=== PATIENT | female | born 1960 | race Caucasian/White ===

== ENCOUNTER 2017-01-04 14:10 | Day surgery (SDC) | payer OTHER ==
[2017-01-04] VITALS (12 sets, daily range): BP systolic 102–119; BP diastolic 61–90; PULSE 72–94; RESP 13–22; Ht 165.1 cm; Wt 72.8 kg
[~2017-01-04] VITALS: Ht 165.1 cm; Wt 72.8 kg
[~2017-01-04 14:10] MED LIST: CEFAZOLIN 1 GM INJ ONE; ELVI1TAB PO; FAMO20TA18 PO; GLYCOPYRROLATE 1 MG INJ ONE; LEDI1TAB PO; METO-448 PO; NEOSTIGMINE 3 MG/3 ML SYRINGE ONE; OXYC-279 PO; ROCURONIUM 50 MG INJ ONE
[2017-01-04] MEDS ORDERED: PROPOFOL 20 ML ONE (15:59)
[2017-01-04] MEDS ORDERED: SUCCINYLCHOLINE CHLORIDE 100 MG/5 ML SYG IV ONE (15:59)
[2017-01-04] MEDS ORDERED: MIDAZOLAM 1 MG/ML 2 ML INJ ONE (15:59)
[2017-01-04] MEDS ORDERED: LIDOCAINE 2% (SDV) 5 ML INJ ONE (16:01)
[2017-01-04] MEDS ORDERED: IOHEXOL 300MG/ML 30 ML BTL ONE (16:26)
[2017-01-04] MEDS ORDERED: INDOMETHACIN 50 MG SUPP PR ONE (16:26)
[2017-01-04] MEDS ORDERED: hydrALAzine 20 MG INJ IV PRN (17:30)
[2017-01-04] MEDS ORDERED: OXYCODONE/ACETAMINOPHEN (5/325) TAB PO PRN ×2 (17:30)
[2017-01-04] MEDS ORDERED: morphine (1 MG/ML) 10ML SYRINGE IV PRN ×3 (17:30)
[2017-01-04] MEDS ORDERED: PROCHLORPERAZINE 10 MG INJ IV PRN (17:30)
[2017-01-04] MEDS ORDERED: METOCLOPRAMIDE 10 MG INJ IV PRN (17:30)
[2017-01-04] MEDS ORDERED: DIPHENHYDRAMINE 50 MG INJ IV PRN (17:30)
[2017-01-04] MEDS ORDERED: ONDANSETRON 4 MG INJ IV PRN (17:30)
[2017-01-04] MEDS ORDERED: EPHEDrine SULFATE 50 MG/5 ML SYG IV PRN (17:30)
--- NOTE | 2017-01-07 07:41 | RADRPT ---
PROCEDURE: Intraoperative imaging for ERCP with fluoroscopy. CLINICAL INDICATION: Right upper quadrant pain. Intraoperative. TECHNIQUE: 4 images of the right upper quadrant of the abdomen were obtained in the operating room with an image intensifier. No radiologist was in attendance. 30.8 seconds of fluoroscopy time was used. COMPARISON: Sinogram dated 09/04/2016. FINDINGS: Images demonstrate the endoscope in position. Contrast was injected into the common bile duct follo wing stent removal. Surgical clips are present from previous cholecystectomy. There is no evidence of bile leak. IMPRESSION: 1. ERCP as described above. RPTAT: QQ .Scooby Rivero MD, MD Date Time Electronically viewed and signed by .Scooby Rivero MD, on 01/07/2017 07:41 .R/
--- NOTE | 2017-01-08 05:12 | GILP ---
DATE OF PROCEDURE: 01/04/2017 PROCEDURE: Endoscopic retrograde cholangiopancreatography with stent removal. PREMEDICATION: General anesthesia by anesthesiologist. SURGEON: Kaiden Caicedo, for ERCP with. INSTRUMENT USED: Olympus panendoscope. TECHNIQUE: After informed consent, with the patient/relatives understanding the procedure, its stephen cations, potential risks and complications, including but not limited to: allergic reaction, bleedin g, perforation or infection, and after all pertinent questions were answered to the patient's satisf action, the patient/relatives signed witnessed informed consent. Following this, premedication was administered slowly IV push under careful cardiovascular and respi ratory monitoring with pulse oximetry, automatic blood pressure and monitor technician. Once the sedative effect was achieved the patient was place in the prone position in the radiology s pecial procedures suite; the side viewing panendoscope was introduced and advanced under visual cont rol. FINDINGS: Careful examination of the upper gastrointestinal tract, both on insertion as well as wit hdrawal of the instrument disclosed the following findings: ESOPHAGUS: The mucosa of the entire esophagus appears within normal limits. There is no evidence of esophagitis, varices, neoplasm or stricture. No Hiatal Hernia identified. STOMACH: Upon entrance to the stomach air was insufflated, the gastric mares distended normally. T he mucosa of the fundus, body and antrum of the stomach was carefully examined both head-on and on r etroflexion, and shows no abnormalities. There is no evidence of gastritis, ulcers or neoplasm. PYLORUS: The pylorus appears patent and within normal limits, with no evidence of gastric outlet ob struction. DUODENUM: The duodenal mucosa was carefully examined in the duodenal bulb as well as the second por tion of the duodenum and appears unremarkable with no evidence of duodenitis, ulcer or neoplasm. AMPULLA OF VATER: The ampulla of Vater was identified and carefully examined appearing within may l limits. CANNULATION: At this point cannulation was accomplished with the following fluoroscopic findings: The instrument was advanced to the second portion of the duodenum. The ampulla was identified and s tent was noted exiting the ampulla. The stent was secured with a polypectomy snare and retrieved. Following this, cholangiogram was obtained which appeared entirely unremarkable. The instrument was withdrawn reexamining the mucosa in detail. No additional abnormalities are noted. IMPRESSION: Post-biliary stent removal with no incident. Normal cholangiogram. PLAN: Further recommendation will depend on her clinical course. Dictated By: KAIDEN CAICEDO MS/DIMITRI Conf#: [id number] DID#: [id number]
== END 2017-01-04 18:18 | disposition home or self-care (01) ==
LOC: GIL 14:10
PROVIDERS: ATTEND Internal Medicine Gastroenterology
DX: Z96.89 Presence of other specified functional implants (principal); F17.200 Nicotine dependence, unspecified, uncomplicated
CPT/HCPCS: 43275; 74330; J0330; J0690; J2250; J2710; J3010; Q9967; Z7512; Z7610